=== PATIENT | male | born 2000 | race Caucasian/White ===

== ENCOUNTER 2023-12-14 06:27 | Emergency (ER) | payer OTHER, SELFPAY ==
[2023-12-14 06:36] VITALS: BP 115/63; PULSE 94; RESP 18; TEMP 36.6; O2SAT 97
[2023-12-14 06:54] LABS: Abs Immature Grans 0.02 10^3/uL (0.0-0.06); Absolute Basophil Count 0.08 10^3/uL (0.0-0.2); Absolute Eosinophil Count 0.68 10^3/uL (0.0-0.7); Absolute Lymphocyte Count 1.84 10^3/uL (1.2-3.4); Absolute Monocyte Count 0.67 10^3/uL (0.1-0.8); Absolute Neutrophil Count 3.17 10^3/uL (1.2-6.7); Basophils % 1.2 %; Eosinophils % 10.5 %; HCT 43.5 % (40.0-50.0); HGB 14.4 g/dL (13.5-17.5); Immature Grans % 0.3 %; Lymphocytes % 28.5 %; MCH 30.1 pg (27.0-33.0); MCHC 33.1 % (32.0-36.0); MCV 91 fL (80-95); MPV 10.6 fL (8.0-11.0); Monocytes % 10.4 %; Neutrophils % 49.1 %; Platelet Count 215 10^3/uL (130-400); RBC 4.78 10^6/uL (4.36-5.78); RDW 12.6 % (11.8-14.1); RDW-SD 42.5 fL; WBC 6.46 10^3/uL (4.4-10.8)
--- NOTE | 2023-12-14 07:00 | DI.CT_ITS ---
Exam(s) CT ABDOMEN PELVIS W EXAM: CT ABDOMEN PELVIS W CLINICAL HISTORY: Generalized abdominal pain constipation. TECHNIQUE: Imaging Protocol: Axial computed tomography images with coronal and sagittal reformatted images were created and reviewed CONTRAST MATERIAL: Intravenous: Omnipaque-350 100cc Oral: None COMPARISON: No exams were available for comparison FINDINGS: VISUALIZED LUNG BASES: No nodules nor pleural effusions evident. ABDOMEN: There is no ascites. LIVER: There are no focal hepatic lesions evident. No dilated intrahepatic ducts. GALLBLADDER/BILIARY: No obvious gallbladder pathology. CBD is not dilated. PANCREAS: No evidence of pancreatic mass nor dilatation of the pancreatic duct. SPLEEN: Spleen is not enlarged. No obvious intrasplenic lesions. Splenic and portal veins are paten t. ADRENALS: There are no significant adrenal masses. KIDNEYS:No cysts evident. No solid renal masses. No calculi nor hydronephrosis.. ABDOMINAL AORTA: Abdominal aorta is not enlarged. LYMPH NODES:There is no retroperitoneal nor paraaortic adenopathy. ABDOMINAL WALL: No evidence of significant anterior abdominal wall nor inguinal hernia. GI: There is no evidence of bowel obstruction, free air, nor abscess. PELVIS: GI: No evidence of appendicitis.No evidence of sigmoid diverticulitis. LYMPH NODES: There is no intrapelvic nor inguinal adenopathy. REPRODUCTIVE: Age-appropriate URINARY BLADDER: No calculi nor obvious masses evident OSSEOUS: No fractures and no significant osseous lesions. IMPRESSION: 1. No significant acute findings on the CT scan of the abdomen and pelvis RADIATION DOSE DELIVERED: 220.2mGy.cm Total DLP DATA REPOSITORY: All CT scans at this facility are submitted to the National Radiology Data Registry (NRDR) Dose Index Registry (DIR) with the [employer] ([employer]). RADIATION OPTIMIZATION: All CT scans at this facility use at least one of these dose optimization te chniques: automated exposure control; mA and/or kV adjustment per patient size (includes targeted exa ms where dose is matched to clinical indication); or iterative reconstruction.
--- NOTE | 2023-12-14 07:03 | W.ED.GENAD ---
Discharge Plan Disposition Patient Disposition: Home Discharge Details Clinical Impression: Acute constipation Primary Care Provider: OSCAR BAUER ED Provider: Edu Hollis Home Meds and New Rx's Prescriptions: New senna 8.6 mg capsule 8.6 mg PO DAILY PRNQty: 14 0RF docusate sodium [Dulcolax Stool Softener (dss)] 100 mg capsule 100 mg PO DAILY Qty: 14 0RF polyethylene glycol 3350 [Miralax] 17 gram/dose powder 17 g PO DAILY Qty: 119 0RF Discharge Instructions Instructions: Constipation in adults Additional Instructions: You are seen in the emergency department for your abdominal pain. Your CAT scan showed no sign of any dangerous processes. You are receiving medications to treat your constipation which you should take as needed. As we discussed if you begin vomiting have worsening pain or develop fevers please return to the emergency department. Otherwise make sure you stay active and drink plenty water. If these medications are less expensive [id number] please do not feel that you need to fill your prescriptions. HPI General Date/Time Provider Initiated Documentation: 12/14/23 06:48. HPI Narrative: MDM This is an overall very well-appearing normothermic and not tachycardic 23-year-old male with decreased stool output over the past 3 to 4 days most consistent with constipation however with left lower quadrant tenderness and history of ulcerative disease concerning for the possibility of diverticulitis versus recurrent ulcer for which patient will undergo CT scan. Given no abnormal urethral discharge and not concern for sexually transmitted infection. No pain on proportion to suggest necrotizing soft tissue infection. No dysuria or frequency so doubt UTI. No cough to suggest pneumonia. No significant emesis and no history of any abdominal surgeries my suspicion for small bowel obstruction is low. Patient reports that no chest pain to suggest ACS. No history of ureterolithiasis and no sudden onset flank pain so my suspicion is low for ureterolithiasis. No right lower quadrant tenderness to suggest appendicitis. No rash to suggest zoster. Not a vasculopath and not hypotensive so my suspicion is low for ruptured aneurysm. No history of any lymphedema to suggest increased risk for splenic arterial aneurysm. 7:15 AM Reassuring normal lipase. [facility] metabolic panel with mild hyperglycemia but no anion gap normal bicarbonate??not consistent with DKA. Renal function within normal limits. No significant LFT abnormalities. CBC lacks anemia thrombocytopenia leukocytosis. 7:30 AM Urinalysis nitrite leukoesterase negative not consistent with UTI. 10:45 AM I met with the patient following his CT scan which was reassuring. I advised him that he likely had constipation and that he should take MiraLAX Colace and senna. We also discussed that next level would be suppository but I feel that he deserves empiric trial of expectant outpatient management with oral medications including stool softeners and motility agents. I did discuss with the patient that he should return to the emergency department if you develop vomiting or worsening pain or could not eat or drink. He understood his return indications. Chronic conditions affecting the care of the patient: N/A History obtained from an outside historian: N/A External record review: No [facility] [place], [place] records Medications: Ketorolac Social determinants of health affecting disposition: N/A Management discussed with: [] Treatment/interventions considered: [] Response to therapies provided: [] HPI This is a 23-year-old male with history of remote stomach ulcer arrived to the emergency department via private vehicle in the setting of constipation for the past 4 days associated left-sided lower abdominal pain. He has had some pressure when urinating. He is sexually active but uses protection. He is sexually active with a single female partner but he has recently split up. He has never had a sexually transmitted nor a urinary tract infection. He remotely had a colonoscopy and endoscopy. This was in the setting of hematochezia and hematemesis. He was diagnosed with a stomach ulcer. He has had no hematochezia nor any hemoptysis. He occasionally smokes tobacco and marijuana. He denies routine alcohol. He received his immunizations during childhood. He has felt as if he has had some subjective fevers and chills. No history of ureterolithiasis. Patient denies abnormal urethral discharge. Exam General: Well-appearing in no acute distress speaking in complete sentences. Head: Normocephalic, atraumatic. Eye: Extraocular eye movements intact. No conjunctival injection. No scleral icterus. Ear, nose, mouth, throat: Grossly normal inspection. Normal voice, handling secretions normally. Neck: Trachea midline. Cardiovascular: Well-perfused distal extremities. Respiratory: Nonlabored respiration. Clear lungs bilaterally Gastrointestinal: Nondistended abdomen. Soft. Minimal left-sided lower quadrant tenderness. No rebound. No guarding. Musculoskeletal: No edema. Moving all 4 extremities spontaneously. Skin: Normal for age and race, grossly normal temperature and turgor. No acute rash. Neurologic: Alert and appropriate, no apparent acute deficits. GCS 15. Psychiatric: Mood and manner are appropriate. Grooming and personal hygiene are appropriate. Related Data Home Medications ?Medication ?Instructions ?Recorded ?Confirmed docusate sodium 100 mg capsule 100 mg PO DAILY #14 caps 12/14/23 (Dulcolax Stool Softener (docusate)) polyethylene glycol 3350 17 17 g PO DAILY #119 grams 12/14/23 gram/dose oral powder (Miralax) sennosides 8.6 mg capsule (senna) 8.6 mg PO DAILY PRN #14 caps 12/14/23 Previous Rx's ?Medication ?Instructions ?Recorded docusate sodium 100 mg capsule 100 mg PO DAILY #14 caps 12/14/23 (Dulcolax Stool Softener (docusate)) polyethylene glycol 3350 17 17 g PO DAILY #119 grams 12/14/23 gram/dose oral powder (Miralax) sennosides 8.6 mg capsule (senna) 8.6 mg PO DAILY PRN #14 caps 12/14/23 Allergies Allergy/AdvReac Type Severity Reaction Status Date / Time No Known Allergies Allergy Unverified 12/14/23 06:38 General Stated Complaint: Abd Prob DAYDAY: 3 Course Vital Signs Vital signs: Vital Signs Temperature 36.6 C 12/14/23 06:36 Pulse 94 H 12/14/23 06:36 Respiratory Rate 18 12/14/23 06:36 Blood Pressure 115/63 12/14/23 06:36 Pulse Oximetry 97 12/14/23 06:36 Temperature 36.6 C 12/14/23 06:36 Temperature Source Oral 12/14/23 06:36 Pulse 94 H 12/14/23 06:36 Respiratory Rate 18 12/14/23 06:36 Respiratory Effort Normal, Non-Labored 12/14/23 06:37 Blood Pressure 115/63 12/14/23 06:36 Blood Pressure Position Sitting 12/14/23 06:36 Pulse Oximetry 97 12/14/23 06:36 Oxygen Delivery Method Room Air 12/14/23 06:36 Oxygen Flow Rate 0 12/14/23 06:36 Pain Level 6 12/14/23 06:48 Lab/Test Results Lab/Test Results: Laboratory Tests Range/Units 12/14/23 06:45 WBC (4.4-10.8) 10^3/uL 6.46 RBC (4.36-5.78) 10^6/uL 4.78 Hgb (13.5-17.5) g/dL 14.4 Hct (40.0-50.0) % 43.5 MCV (80-95) fL 91 MCH (27.0-33.0) pg 30.1 MCHC (32.0-36.0) % 33.1 RDW (11.8-14.1) % 12.6 Plt Count (130-400) 10^3/uL 215 MPV (8.0-11.0) fL 10.6 Immature Gran % % 0.3 Neutrophils % % 49.1 Lymphocytes % % 28.5 Monocytes % % 10.4 Eosinophils % % 10.5 Basophils % % 1.2 Nucleated RBC % (0.0-0.3) % 0.0 Absolute Neutrophils (1.2-6.7) 10^3/uL 3.17 Absolute Lymphocytes (1.2-3.4) 10^3/uL 1.84 Absolute Monocytes (0.1-0.8) 10^3/uL 0.67 Absolute Eosinophils (0.0-0.7) 10^3/uL 0.68 Absolute Basophils (0.0-0.2) 10^3/uL 0.08 Medical Decision Making Quality:SDOH Health Related Social Needs: No Data to Display PFSH All Active Problems (Updated 12/14/23 @ 08:47 by Edu Hollis MD) Acute constipation (Acute) Social History Smoking/Tobacco Use Status: Current every day Tobacco Type: cigarettes and e-cigarettes Smoking risk assessment performed?: Yes Alcohol Intake: never Drug use: Daily Substance use type: marijuana Housing: apartment Do you feel safe at home: Yes
[2023-12-14 07:08] LABS: ALT 26 U/L (16-63); AST 25 U/L (15-37); Albumin 4.3 g/dL (3.4-5.0); Alkaline Phosphatase 101 U/L (46-116); Anion Gap 7.6 mmol/L (3-11); BUN 8 mg/dL (7-18); Bilirubin, Total 0.22 mg/dL (0.2-1.0); CO2 28.4 mmol/L (21.0-32.0); CREATININE 1.1 mg/dL (0.70-1.30); Calcium 9.6 mg/dL (8.5-10.1); Chloride 105 mmol/L (98-107); Estimated GFR 95.54 (mL/min/1.73m2); Glucose 107 mg/dL (74-106); Lipase 35 U/L (16-77); Potassium 4.2 mmol/L (3.5-5.1); Sodium 141 mmol/L (136-145); Total Protein 7.9 g/dL (6.4-8.2)
[2023-12-14] MEDS: Normal Saline 1,000 ML 1000 ML IV (07:15)
[2023-12-14 07:23] LABS: Bilirubin Negative (Negative); Blood Negative (Negative); Clarity Clear (Clear); Glucose Negative (Negative); Ketones Negative (Negative); Leukocyte Esterase Negative (Negative); Nitrite Negative (Negative); Urobilinogen 0.2 mg/dL (Up to 0.2)
[2023-12-14] MEDS: Omnipaque 350 MG/ML 100 ML BTL IJ (07:45)
[2023-12-14] MEDS: Normal Saline - Diluent 50 ML VIAL IJ (07:46)
[2023-12-14] MEDS: Docusate Sodium 100 MG CAP PO (08:25)
[2023-12-14] MEDS: Senna TAB 1 TAB PO (08:25)
[2023-12-14] MEDS: Ketorolac 15 MG/ML VIAL IVP (08:25)
--- NOTE | 2023-12-14 08:28 | DI.VRAD_ITS ---
PROCEDURE INFORMATION: Exam: CT Abdomen And Pelvis With Contrast Exam date and time: 12/14/2023 7:42 AM Age: 23 years old Clinical indication: Constipation and other: Generalized abd pain constipation TECHNIQUE: Imaging protocol: Computed tomography of the abdomen and pelvis with contrast. Contrast material: OMNIPAQUE 350; Contrast volume: 90 ml; Contrast route: INTRAVENOUS (IV); COMPARISON: No relevant prior studies available. FINDINGS: Liver: No focal hepatic lesion identified. Gallbladder and biliary ducts: No radiodense gallbladder calculi seen. Pancreas: No CT evidence for acute pancreatitis. Spleen: No splenomegaly. Adrenal glands: No mass. Kidneys and ureters: No hydronephrosis or evidence for pyelonephritis. Stomach and bowel: No intestinal obstruction is appreciated. Appendix: No evidence of appendicitis. Intraperitoneal space: No free air. Vasculature: No abdominal aortic aneurysm. Lymph nodes: Nonspecific mesenteric lymph nodes. Urinary bladder: No acute findings. Reproductive: No acute findings. Bones/joints: No pertinent acute abnormality seen. Soft tissues: No pertinent acute abnormality seen. IMPRESSION: No acute findings to explain reported symptoms. Dictated and Authenticated by: Trinity Corbett MD. Ordering:URSULA Sorensen MD
== END 2023-12-14 09:14 | disposition home or self-care (01) ==
PROVIDERS: Student in an Organized Health Care Education/Training Program; Emergency Provider Emergency Medicine; PCP Pediatrics; Visit Provider Emergency Medicine
DX: K59.00 Constipation, unspecified (principal); R10.30 Lower abdominal pain, unspecified; R11.2 Nausea with vomiting, unspecified; F17.210 Nicotine dependence, cigarettes, uncomplicated; F17.290 Nicotine dependence, other tobacco product, uncomplicated
CPT/HCPCS: 36415; 80053; 83690; 96361; 96374; 99285; 74177; 81003; 85025; 99284; J1885; J3490